=== PATIENT | male | born 1970 | race Caucasian/White ===

== ENCOUNTER 2018-03-27 14:30 | Emergency (ER) | payer SELFPAY ==
[~2018-03-27] VITALS: Ht 170.2 cm; Wt 70.0 kg
--- NOTE | 2018-03-27 14:37 | PD ---
HPI Chief Complaint: Bullock act Time Seen by Provider: 14:37 Travel History International Travel<30 days: No Contact w/Intl Traveler<30days: No Traveled to known affect area: No History of Present Illness HPI Patient was found intoxicated by the planning supervisor. He was brought in as a Bullock act. Patient appears to be moderately intoxicated with slurred speech. He says he is not from here. He has never been seen in [place] system before. He claims to have drank alcohol but it is hard to get further detailed history from him. He says he is from [place]. He appears disheveled. Patient is not complaining of any pain or anything else. [facility] Past Medical History Narrative Medical List of his past medical, surgical, social and family history reviewed from the nursing note Social History Tobacco Use: Yes Allergies-Medications (Allergen,Severity, Reaction): Coded Allergies: No Known Allergies (Verified Allergy, Unknown, 03/27/18) Comments No known drug allergies. Reported Meds & Prescriptions Reported Meds & Active Scripts Active Reported Aisha Allergy (Fexofenadine HCl) 180 Mg Tab 180 Mg PO DAILY Narrative Medication List of his home medications reviewed from the nursing note Review of Systems ROS Limitations: Intoxication, Altered Mental Status Except as stated in HPI: all other systems reviewed are Neg Physical Exam Exam Limitations: Altered Mental Status Narrative GENERAL: Moderately intoxicated, disheveled, no obvious distress SKIN: Focused skin assessment warm/dry. Superficial abrasion on the left side of the face. No active bleeding HEAD: Atraumatic. Normocephalic. EYES: Pupils equal and round. No scleral icterus. No injection or drainage. ENT: No nasal bleeding or discharge. Mucous membranes pink and moist. NECK: Trachea midline. No JVD. CARDIOVASCULAR: Regular rate and rhythm. No murmur appreciated. RESPIRATORY: No accessory muscle use. Clear to auscultation. Breath sounds equal bilaterally. GASTROINTESTINAL: Abdomen soft, non-tender, nondistended. Hepatic and splenic margins not palpable. MUSCULOSKELETAL: No obvious deformities. No clubbing. No cyanosis. No edema. NEUROLOGICAL: Moderately intoxicated. No obvious cranial nerve deficits. Motor grossly within normal limits. Slurred speech. PSYCHIATRIC: Appropriate mood and affect; insight and judgment normal. Data Data Last Documented VS Orders Orders Ed Discharge Order (03/27/18 18:20) [facility] Medical Decision Making Medical Screen Exam Complete: Yes Emergency Medical Condition: Yes Medical Record Reviewed: Yes Differential Diagnosis Acute alcohol intoxication, chronic alcohol abuse, homeless Narrative Course 3:54 PM is medically cleared the patient. He will sleep it off in the emergency room till he is clinically sober to be discharged. Procedures EKG Prior to Arrival: Emerald Huizar MD March 27, 2018 14:37
[2018-03-27 14:47] VITALS: BP 112/72; PULSE 97; RESP 20; O2SAT 93
[2018-03-27] MEDS ORDERED: FEXO15TA PO (14:56)
--- NOTE | 2018-03-27 19:00 | PD ---
Physical Exam Narrative Patient was intoxicated and was observed in the ED. Patient was medically cleared by ED physician. Patient was signed out to me. Data Data Last Documented VS Vital Signs Date Time Temp Pulse Resp B/P (MAP) Pulse Ox O2 Delivery O2 Flow Rate FiO2 03/27/18 14:50 Room Air 03/27/18 14:47 97 20 112/72 (85) 93 Orders Orders Ed Discharge Order (03/27/18 18:20) MDM Supervised Visit with WILSON: No Narrative Course Patient was intoxicated. Patient was observed in ED. Patient is awake alert oriented 3 and steady on his feet. Patient ready to be discharged. Diagnosis Primary Impression: Alcohol intoxication Qualified Codes: F10.920 - Alcohol use, unspecified with intoxication, uncomplicated Patient Instructions: General Instructions Departure Forms: Tests/Procedures Additional Instruction: Advised [facility]. Med/Other Pt SpecificInfo: No Meds Exist/No RX given Disposition: 01 DISCHARGE HOME Condition: Stable Agustin Bain MD March 27, 2018 19:00
== END 2018-03-27 19:04 | disposition home or self-care (01) ==
LOC: NEPD 14:30
DX: F10.920 Alcohol use, unspecified with intoxication, uncomplicated (principal)
CPT/HCPCS: 99283